=== PATIENT | male | born 1950 | race Hispanic/Latino ===

== ENCOUNTER 2016-12-04 15:28 | Observation (INO) | payer MEDICARE ==
[2016-12-04 16:39] LABS: BASO # 0.1 K/uL (0.0-0.2); BASO % 0.6 % (0.0-2.0); EOS # 0.7 K/uL (0.0-0.7); EOS % 5.8 % (0.0-4.0); LYMPH # 3.2 K/uL (1.0-4.3); LYMPH % 28.6 % (20.0-40.0); MEAN CELL VOLUME 91.5 fl (80.0-94.0); MEAN CORPUSCULAR HEMOGLOBIN 29.6 pg (27.0-31.0); MEAN CORPUSCULAR HGB CONC 32.4 g/dL (33.0-37.0); MEAN PLATELET VOLUME 8.3 fl (7.2-11.7); MONO # 0.7 K/uL (0.0-0.8); MONO % 6.6 % (0.0-10.0); NEUT # 6.6 K/uL (1.8-7.0); NEUT % 58.4 % (50.0-75.0); RED CELL DISTRIBUTION WIDTH 14.7 % (11.5-14.5); WHITE BLOOD COUNT 11.2 K/uL (4.8-10.8)
[2016-12-04 16:47] LABS: RBC URINE 3 /hpf (0-3); URINE BILIRUBIN NEGATIVE (NEGATIVE); URINE BLOOD NEGATIVE (NEGATIVE); URINE COLOR STRAW (YELLOW); URINE GLUCOSE (UA) NEG (Normal); URINE KETONE NEGATIVE (NEGATIVE); URINE LEUKOCYTE ESTERASE NEG Leu/uL (Negative); URINE PROTEIN NEGATIVE (NEGATIVE); URINE UROBILINOGEN 0.2-1.0 mg/dL (0.2-1.0); WBC URINE 1 /hpf (0-5)
[2016-12-04 16:50] LABS: PARTIAL THROMBOPLASTIN TIME 36.1 Seconds (25.6-37.1)
[2016-12-04 16:55] LABS: ALB/GLOB RATIO 1.5 (1.0-2.1); ALKALINE PHOSPHATASE 64 U/L (38-126); ALT/SGPT 25 U/L (21-72); AST/SGOT 27 U/L (17-59); BILIRUBIN,TOTAL 0.4 mg/dl (0.2-1.3); BLOOD UREA NITROGEN 30 mg/dl (9-20); CALCIUM 10.1 mg/dL (8.4-10.2); CARBON DIOXIDE 21 mmol/L (22-30); CHLORIDE 109 mmol/L (98-107); GFR AFRICAN-AMERICAN 34; GLUCOSE,RANDOM 95 mg/dL (75-110); SODIUM 139 mmol/l (132-148); TOTAL PROTEIN 7.7 G/DL (6.3-8.2)
[2016-12-04 17:09] LABS: POTASSIUM 5.6 MMOL/L (3.6-5.0)
--- NOTE | 2016-12-04 17:53 | ED PDOC ---
Lower Extremity Pain/Injury Time Seen by Provider: 12/04/16 15:57 Chief Complaint (Nursing): Lower Extremity Problem/Injury Chief Complaint (Provider): Lower Extremity Swelling History Per: Patient History/Exam Limitations: no limitations Onset/Duration Of Symptoms: Worse Since (recently) Current Symptoms Are (Timing): Still Present Additional History Per: Patient, Prior Records Additional Complaint(s): Niranjan is a 66 y/o male with a past medical history of COPD, CAD, and hypertension , who presents to the ED with ongoing and worsening lower extremity pain, left greater than right. Sent by PMD Dr. Hughes to the ED for further evaluation. He describes pain as sharp, and worsening with laying down. Denies recent trauma. Reports he recently stopped taking gabapentin per instruction of his neurologist Dr. Sung, due to concern for association with lower extremity swelling. PMD: Sharad Hughes MD Neurologist: Meri Sung MD Past Medical History Reviewed: Historical Data, Nursing Documentation, Vital Signs Vital Signs: Last Vital Signs Temp Pulse 50 L 12/04/16 15:49 Resp 16 12/04/16 15:49 BP 140/58 L 12/04/16 15:49 Pulse Ox 98 12/04/16 15:49 - Medical History PMH: CAD, COPD, HTN Denies: Chronic Kidney Disease Other PMH: Neuropathy - Surgical History Surgical History: Coronary Stent (x 2 in 1998) Other surgeries: Pyloric stenosis during infancy - Family History Family History: States: Unknown Family Hx - Social History Current smoker - smoking cessation education provided: Yes Alcohol: None Drugs: Denies - Home Medications Home Medications: Ambulatory Orders Medication Instructions Recorded Aspirin [Aspirin EC] 1 tab PO DAILY 02/13/16 Lisinopril [Zestril] 1 tab PO DAILY 02/13/16 Metoprolol Tartrate [Metoprolol 1 tab PO DAILY 02/13/16 Tartrate] Nitroglycerin [Nitrostat] 1 tab SL PRN PRN 12/04/16 - Allergies Allergies/Adverse Reactions: Allergies Allergy/AdvReac Type Severity Reaction Status Date / Time pregabalin [From Lyrica] Allergy RASH Verified 12/04/16 15:49 Review of Systems ROS Statement: Except As Marked, All Systems Reviewed And Found Negative Musculoskeletal: Positive for: Other (Lower extremity swelling, Left > right ) Physical Exam - Reviewed Nursing Documentation Reviewed: Yes Vital Signs Reviewed: Yes - Physical Exam Appears: Positive for: Non-toxic, No Acute Distress Head Exam: Positive for: ATRAUMATIC, NORMAL INSPECTION, NORMOCEPHALIC Skin: Positive for: Normal Color, Warm, Dry Eye Exam: Positive for: EOMI, Normal appearance, PERRL Neck: Positive for: Normal, Painless ROM, Supple Cardiovascular/Chest: Positive for: Regular Rate, Rhythm. Negative for: Murmur Respiratory: Positive for: Wheezing (Trace wheezing bilaterally). Negative for : Respiratory Distress Gastrointestinal/Abdominal: Positive for: Normal Exam, Soft. Negative for: Tenderness Extremity: Positive for: Normal ROM, Tenderness (Tenderness along the foot and calf), Swelling (Left > right, lower extremity) Neurologic/Psych: Positive for: Alert, Oriented - Laboratory Results Result Diagrams: 12/04/16 16:34 12/04/16 16:34 - ECG O2 Sat by Pulse Oximetry: 98 (RA) Pulse Ox Interpretation: Normal Medical Decision Making Medical Decision Making: Old charts were reviewed. Time: 16:03 Initial Impression: Work up for Peripheral Edema Initial Plan: --EKG --CBC --PTT --Prothrombin time --CMP --Troponin I --B-type natriuretic peptide --Urinalysis --CXR 2 views --Toradol 30 mg IV --Pending X-Ray Left Foot --Pending US Duplex Lower Ext, Bilateral --Pending reevaluation Time: 18:01 X-Ray Left Foot: FINDINGS: BONES: Normal. No fracture. JOINTS: Normal. SOFT TISSUES: Normal. OTHER FINDINGS: None. IMPRESSION: Normal left foot radiographs. Time: 18:01 X-Ray Chest: FINDINGS: LUNGS: No active pulmonary disease. PLEURA: No significant pleural effusion identified. No pneumothorax apparent. CARDIOVASCULAR: Normal. OSSEOUS STRUCTURES: No significant abnormalities. VISUALIZED UPPER ABDOMEN: Normal. OTHER FINDINGS: None. IMPRESSION: No active disease. Time: 18:33 US Lower Extrem: Findings: There is normal flow, compressibility, and augmentation of the left common femoral, femoral, and popliteal veins. The left posterior tibial veins appear patent. Impression: No evidence of deep venous thrombosis in the left lower extremity. Time: 19:16 US Duplex Bilateral Lower Extremity Arteries: FINDINGS: Right common femoral artery: Right common femoral artery peak systolic velocity 135 cm/s. Right superficial femoral artery: Distal right superficial femoral artery is patent with velocity 97 cm/s. Right popliteal artery: No acute findings. No occlusion or significant stenosis. Right calf/foot arteries: Diminished flow in the right posterior tibial and anterior tibial artery which are patent. Left common femoral artery: No acute findings. No occlusion or significant stenosis. Left superficial femoral artery: Peak systolic velocity in the left superficial femoral artery at the mid level is 90 cm/s with diffuse disease. Left popliteal artery: The velocity of the popliteal artery on the left is 11 cm /s which is decreased since prior. Atherosclerotic disease. Left calf/foot arteries: Posterior tibial artery anterior tibial artery on the left demonstrate patency with comparable velocities.. The dorsalis pedis is not seen on the left. Other arteries: Monophasic waveforms are noted in both lower extremity arterial systems. The velocities in the left lower extremity arterial system diminished compared to the prior. Soft tissues: Unremarkable. IMPRESSION: Monophasic waveforms bilaterally. Diminished velocity measurements in the left lower arterial system since the prior study. Correlate for more proximal stenosis, downstream dampening. The left dorsalis pedis is not visualized. Time: 20:08 --Discussed case with Dr. Hughes, who recommends starting Lovenox low dose and admitting for possible vascular intervention. --Patient also given Duoneb treatment for COPD exacerbation Scribe Attestation: Documented by Angela Castaneda, acting as a scribe for Harsha Mejia III, DO Provider Scribe Attestation: All medical record entries made by the Scribe were at my direction and personally dictated by me. I have reviewed the chart and agree that the record accurately reflects my personal performance of the history, physical exam, medical decision making, and the department course for this patient. I have also personally directed, reviewed, and agree with the discharge instructions and disposition. Disposition - Clinical Impression Clinical Impression: COPD exacerbation, Claudication - Patient ED Disposition Is Patient to be Admitted: Yes Counseled Patient/Family Regarding: Studies Performed, Diagnosis - Disposition Disposition Time: 20:08 Condition: GUARDED - Pt Status Changed To: Hospital Disposition Of: Inpatient - Admit Certification Admit to Inpatient:: After my assessment, the patient will require hospitalization for at least two midnights. This is because of the severity of symptoms shown, intensity of services needed, and/or the medical risk in this patient being treated as an outpatient. - POA Present On Arrival: None
--- NOTE | 2016-12-04 18:03 | RAD ---
HISTORY: chest pain/ r/o infiltrate COMPARISON: 02/13/2016 TECHNIQUE: Chest PA and lateral FINDINGS: LUNGS: No active pulmonary disease. PLEURA: No significant pleural effusion identified. No pneumothorax apparent. CARDIOVASCULAR: Normal. OSSEOUS STRUCTURES: No significant abnormalities. VISUALIZED UPPER ABDOMEN: Normal. OTHER FINDINGS: None. IMPRESSION: No active disease.
--- NOTE | 2016-12-04 18:03 | RAD ---
PROCEDURE: Left Foot Radiographs. HISTORY: L foot pain swelling COMPARISON: None. FINDINGS: BONES: Normal. No fracture. JOINTS: Normal. SOFT TISSUES: Normal. OTHER FINDINGS: None. IMPRESSION: Normal left foot radiographs.
--- NOTE | 2016-12-04 18:25 | CP.PCM.CON ---
History of Present Illness - History of Present Illness History of Present Illness: 66 year old male with PMH of HTN seen in the ED for painful feet and leg swelling. Patient states that the pain has been occurring for roughly a year and the swelling has been occurring for several months. Patient states that the pain and swelling is significantly worse in his left foot and leg. Patient denies any calf pain b/l. Patient denies history of DVT. Patient denies any recent trauma to either foot or leg. Patient states that he smokes cigarettes consistently throughout the day every day. Patient denies any further pedal complaints at this time. Patient denies N/V/F/C/CP/SOB Review of Systems - Review of Systems Review of Systems: ROS unremarkable outside of HPI Past Patient History - Infectious Disease Hx of Infectious Diseases: None - Past Medical History & Family History Past Medical History?: Yes - Past Social History Alcohol: None Drugs: Denies - CARDIAC Hx Hypertension: Yes - PULMONARY Hx Chronic Obstructive Pulmonary Disease (COPD): Yes - NEUROLOGICAL Hx Neurological Disorder: No - HEENT Hx HEENT Problems: Yes Other/Comment: glasses - RENAL Hx Chronic Kidney Disease: No - ENDOCRINE/METABOLIC Hx Endocrine Disorders: No - HEMATOLOGICAL/ONCOLOGICAL Hx Blood Disorders: No - INTEGUMENTARY Hx Dermatological Problems: No - MUSCULOSKELETAL/RHEUMATOLOGICAL Hx Musculoskeletal Disorders: No Hx Falls: No - GASTROINTESTINAL Hx Gastrointestinal Disorders: No - GENITOURINARY/GYNECOLOGICAL Hx Genitourinary Disorders: No - PSYCHIATRIC Hx Psychophysiologic Disorder: No Hx Substance Use: No - SURGICAL HISTORY Hx Coronary Stent: Yes (x 2 in 1998) - ANESTHESIA Hx Anesthesia: Yes Hx Anesthesia Reactions: No Meds Allergies/Adverse Reactions: Allergies Allergy/AdvReac Type Severity Reaction Status Date / Time pregabalin [From Lyrica] Allergy RASH Verified 12/04/16 15:49 Physical Exam - Constitutional Appears: Well, Non-toxic, No Acute Distress - Extremities Exam Additional comments: LE focused exam: Vasc: DP/PT pulses diminished 1/4 R and 0/4 L due to edema. CFT < 3 seconds to all digits b/l. Skin temperature warm to warm from proximal to distal. Diffuse pitting edema noted to left foot and leg. Neuro: Epicritic and protective sensation grossly intact b/l Derm: Deroofed bullae measuring roughly 0.3 cm x 0.2 cm x 0.1 cm noted to dorsal right hallux with serous drainage present. Otherwise no open lesions, wounds, maceration, xerosis, abnormal pigmentation or abnormal growths noted b/ l. MSK: POP to b/l feet L > R - Neurological Exam Neurological exam: Alert, Oriented x3 - Psychiatric Exam Psychiatric exam: Normal Affect, Normal Mood Results - Vital Signs Recent Vital Signs: Last Vital Signs Temp Pulse 50 L 12/04/16 15:49 Resp 16 12/04/16 15:49 BP 140/58 L 12/04/16 15:49 Pulse Ox 98 12/04/16 17:59 - Labs Result Diagrams: 12/04/16 16:34 12/04/16 16:34 Labs: Laboratory Results - last 24 hr 12/04/16 12/04/16 12/04/16 16:34 16:34 16:34 WBC 11.2 H RBC 3.50 L Hgb 10.4 L Hct 32.0 L MCV 91.5 D MCH 29.6 MCHC 32.4 L RDW 14.7 H Plt Count 242 D MPV 8.3 Neut % (Auto) 58.4 Lymph % (Auto) 28.6 [place] % (Auto) 6.6 Eos % (Auto) 5.8 H Baso % (Auto) 0.6 Neut # 6.6 Lymph # 3.2 [place] # 0.7 Eos # 0.7 Baso # 0.1 PT 11.3 INR 1.1 APTT 36.1 Sodium 139 Potassium 5.6 H Chloride 109 H Carbon Dioxide 21 L Anion Gap 15 BUN 30 H Creatinine 2.3 H Est GFR ( Amer) 34 Est GFR (Non-Af Amer) 29 Random Glucose 95 Calcium 10.1 Total Bilirubin 0.4 AST 27 ALT 25 Alkaline Phosphatase 64 Troponin I < 0.0120 NT-Pro-B Natriuret Pep 730 Total Protein 7.7 Albumin 4.6 Globulin 3.1 Albumin/Globulin Ratio 1.5 Urine Color Urine Clarity Urine pH Ur Specific [place] Urine Protein Urine Glucose (UA) Urine Ketones Urine Blood Urine Nitrate Urine Bilirubin Urine Urobilinogen Ur Leukocyte Esterase Urine RBC (Auto) Urine Microscopic WBC Ur Squamous Epith Cells 12/04/16 16:34 WBC RBC Hgb Hct MCV MCH MCHC RDW Plt Count MPV Neut % (Auto) Lymph % (Auto) [place] % (Auto) Eos % (Auto) Baso % (Auto) Neut # Lymph # [place] # Eos # Baso # PT INR APTT Sodium Potassium Chloride Carbon Dioxide Anion Gap BUN Creatinine Est GFR ( Amer) Est GFR (Non-Af Amer) Random Glucose Calcium Total Bilirubin AST ALT Alkaline Phosphatase Troponin I NT-Pro-B Natriuret Pep Total Protein Albumin Globulin Albumin/Globulin Ratio Urine Color Straw Urine Clarity Clear Urine pH 6.0 Ur Specific [place] 1.005 Urine Protein Negative Urine Glucose (UA) Neg Urine Ketones Negative Urine Blood Negative Urine Nitrate Negative Urine Bilirubin Negative Urine Urobilinogen 0.2-1.0 Ur Leukocyte Esterase Neg Urine RBC (Auto) 3 Urine Microscopic WBC 1 Ur Squamous Epith Cells < 1 Assessment & Plan - Assessment and Plan (Free Text) Assessment: 66 year old male with b/l leg and foot pain/swelling seen in ED Plan: Patient seen and evaluated in ED Left foot xray read as normal radiograph LE venous duplex negative for DVT Awaiting arterial duplex study Patient to be admitted to floors per request of his PCP Podiatry to sign off at this time Please reconsult as needed - Date & Time Date: 12/04/16 Time: 19:30
--- NOTE | 2016-12-04 18:35 | US ---
Left lower extremity ultrasound. Indication: LLE edema Technique: Duplex ultrasound evaluation of the left lower extremity Comparison: Bilateral lower extremity ultrasound performed 07/31/16 Findings: There is normal flow, compressibility, and augmentation of the left common femoral, femoral, and popliteal veins. The left posterior tibial veins appear patent. Impression: No evidence of deep venous thrombosis in the left lower extremity.
[2016-12-04] MEDS ORDERED: Enoxaparin 30 mg Syringe SC STA (20:10)
[2016-12-04] MEDS ORDERED: Albuterol-Ipratrop 3 mg / 0.5 (3 ml) UD INH STA (20:14)
[2016-12-04] MEDS ORDERED: Albuterol-Ipratrop 3 mg / 0.5 (3 ml) UD ONE (20:45)
--- NOTE | 2016-12-04 23:39 | CP.PCM.CON ---
History of Present Illness - History of Present Illness History of Present Illness: Consult requested for evaluation of claudication and rest pain HPI: 66-year-old male with past medical history significant for hypertension and diabetes mellitus and dyslipidemia of [id number] history of smoking admitted for complains of severe bilateral lower extremity pain. Patient in February 2016 had undergone a evaluation with cardiac cath showing mild coronary artery disease at that time he had undergone a left renal artery stenting. He has been followed for his cardiovascular care by Dr. blanton. I was consulted for evaluation of worsening symptoms of claudication and evaluation for peripheral angiogram. 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 He describes bilateral lower extremity pain both at rest and with activity burning in sensation in a company very mild aching sensation. Symptoms are progressively getting worse and he is unable to sleep secondary to severe pain and exertion. Review of Systems - Review of Systems All systems: reviewed and no additional remarkable complaints except - Constitutional Constitutional: As Per HPI, Lethargy, Weakness - EENT Eyes: As Per HPI Ears: As Per HPI Nose/Mouth/Throat: As Per HPI - Cardiovascular Cardiovascular: As Per HPI - Respiratory Respiratory: As Per HPI - Gastrointestinal Gastrointestinal: As Per HPI - Genitourinary Genitourinary: As Per HPI - Reproductive: Male Reproductive:Male: As Per HPI - Musculoskeletal Musculoskeletal: As Per HPI - Integumentary Integumentary: As Per HPI - Neurological Neurological: As Per HPI - Psychiatric Psychiatric: As Per HPI - Endocrine Endocrine: As Per HPI - Hematologic/Lymphatic Hematologic: As Per HPI Past Patient History - Infectious Disease Hx of Infectious Diseases: None - Past Medical History & Family History Past Medical History?: Yes Pertinent Family History: +ve for HTN and CAD - Past Social History Alcohol: None Drugs: Denies - CARDIAC Hx Hypertension: Yes - PULMONARY Hx Chronic Obstructive Pulmonary Disease (COPD): Yes - NEUROLOGICAL Hx Neurological Disorder: No - HEENT Hx HEENT Problems: Yes Other/Comment: glasses - RENAL Hx Chronic Kidney Disease: No - ENDOCRINE/METABOLIC Hx Endocrine Disorders: No - HEMATOLOGICAL/ONCOLOGICAL Hx Blood Disorders: No - INTEGUMENTARY Hx Dermatological Problems: No - MUSCULOSKELETAL/RHEUMATOLOGICAL Hx Musculoskeletal Disorders: No Hx Falls: No - GASTROINTESTINAL Hx Gastrointestinal Disorders: No - GENITOURINARY/GYNECOLOGICAL Hx Genitourinary Disorders: No - PSYCHIATRIC Hx Psychophysiologic Disorder: No Hx Substance Use: No - SURGICAL HISTORY Hx Coronary Stent: Yes (x 2 in 1998) - ANESTHESIA Hx Anesthesia: Yes Hx Anesthesia Reactions: No Meds Allergies/Adverse Reactions: Allergies Allergy/AdvReac Type Severity Reaction Status Date / Time pregabalin [From Lyrica] Allergy RASH Verified 12/04/16 15:49 - Medications Medications: Current Medications Albuterol/Ipratropium (Duoneb 3 Mg/0.5 Mg (3 Ml) Ud) 3 ml INH RQ6 DENISSE Aspirin (Ecotrin) 81 mg PO DAILY DENISSE Enoxaparin Sodium (Lovenox) 40 mg SC DAILY DENISSE PRN Reason: Protocol Hydromorphone HCl (Dilaudid) 2 mg PO Q4 PRN PRN Reason: Pain, moderate (4-7) Metoprolol Tartrate (Lopressor) 50 mg PO DAILY [facility] Nitroglycerin (Nitrostat Sl Tab) 0.4 mg SL Q5M PRN PRN Reason: Chest Pain Physical Exam - Constitutional Appears: Well - Head Exam Head Exam: ATRAUMATIC, NORMAL INSPECTION, NORMOCEPHALIC - Eye Exam Eye Exam: EOMI, Normal appearance, PERRL Pupil Exam: NORMAL ACCOMODATION, PERRL - ENT Exam ENT Exam: Mucous Membranes Moist, Normal Exam - Neck Exam Neck exam: Positive for: Normal Inspection - Respiratory Exam Respiratory Exam: Clear to Auscultation Bilateral, NORMAL BREATHING PATTERN - Cardiovascular Exam Cardiovascular Exam: REGULAR RHYTHM, +S1, +S2, Systolic Murmur - GI/Abdominal Exam GI & Abdominal Exam: Normal Bowel Sounds, Soft. absent: Tenderness - Extremities Exam Extremities exam: Positive for: normal inspection, pedal edema Additional comments: pedal pulses absent - Back Exam Back exam: NORMAL INSPECTION - Neurological Exam Neurological exam: Alert, CN II-XII Intact, Normal Gait, Oriented x3, Reflexes Normal - Psychiatric Exam Psychiatric exam: Normal Affect, Normal Mood - Skin Skin Exam: Dry, Intact, Normal Color, Warm Results - Vital Signs Recent Vital Signs: Last Vital Signs Temp 97.4 F L 12/04/16 22:57 Pulse 47 L 12/04/16 22:57 Resp 20 12/04/16 22:57 BP 145/52 L 12/04/16 22:57 Pulse Ox 97 12/04/16 22:57 - Labs Result Diagrams: 12/04/16 16:34 12/04/16 16:34 Assessment & Plan (1) Claudication, class IV Assessment and Plan: will f/u on arterial duplex sx most likely 2' to severe PVOD will need optimization of renal function prior to angiogram keep pt on asa, plavix, statins, acei Status: Acute (2) Dyslipidemia Assessment and Plan: statins Status: Acute (3) Hypertension Status: Acute (4) Peripheral neuropathy Status: Acute
[2016-12-05] MEDS: Albuterol-Ipratrop 3 mg / 0.5 (3 ml) UD INH SCH ×3 (01:08→14:32)
[2016-12-05 05:27] LABS: ABG ALLEN TEST YES; ARTERIAL BLOOD GAS HCO3 18.9 mmol/L (21-28); ARTERIAL BLOOD GAS O2 CAPACITY 15.4 mL/dL (16-24); ARTERIAL BLOOD GAS PH 7.33 (7.35-7.45); ARTERIAL BLOOD GAS PO2 79 mm/Hg (80-100); ARTERIAL BLOOD HGB O2 SAT 93.7 % (95.0-98.0); CARBOXYHEMOGLOBIN 1.8 % (0.5-1.5); HHB 2.8 % (0.0-5.0); METHEMOGLOBIN 1.8 % (0.0-3.0)
[2016-12-05 06:48] LABS: PARTIAL THROMBOPLASTIN TIME 35.5 Seconds (25.6-37.1)
[2016-12-05] MEDS ORDERED: Enoxaparin 30 mg Syringe SC SCH (09:00)
--- NOTE | 2016-12-05 10:05 | CP.PCM.CON ---
History of Present Illness - History of Present Illness History of Present Illness: 66 yo man w/ chronic pain involving the legs has been referred for pain management. He's a poor historian, history was pieced together from his chart and via Dr. Hughes. Apparently patient has an outside pain physician, who ordered a recent MRI. The lumbar MRI showed diffuse facet syndrome, with resultant foraminal stenoses. He has been on both Lyrica and Neurontin, but couldn't tolerate either. He's unsure which opioid he's been on however. He does state that he has bilateral feet and lower leg pain, burning in quality , constant, but not worse with ambulation or direct pressure. In fact walking makes the pain better. He does have some lower back pain, but not as severe as the pain in the feet. Currently the left leg is more symptomatic. Per Dr. Hughes, peripheral stenting may be necessary but that's on hold due to his renal insufficiency. Past Patient History - Infectious Disease Hx of Infectious Diseases: None - Past Medical History & Family History Past Medical History?: Yes - Past Social History Smoking Status: Heavy Smoker > 10 Cigarettes Daily - CARDIAC Hx Cardiac Disorders: Yes Hx Hypertension: Yes - PULMONARY Hx Respiratory Disorders: Yes Hx Chronic Obstructive Pulmonary Disease (COPD): Yes - NEUROLOGICAL Hx Neurological Disorder: Yes Other/Comment: Neuropathy - HEENT Hx HEENT Problems: No - RENAL Hx Chronic Kidney Disease: No - ENDOCRINE/METABOLIC Hx Endocrine Disorders: No - HEMATOLOGICAL/ONCOLOGICAL Hx Blood Disorders: No - INTEGUMENTARY Hx Dermatological Problems: No - MUSCULOSKELETAL/RHEUMATOLOGICAL Hx Musculoskeletal Disorders: No Hx Falls: No - GASTROINTESTINAL Hx Gastrointestinal Disorders: No - GENITOURINARY/GYNECOLOGICAL Hx Genitourinary Disorders: No - PSYCHIATRIC Hx Psychophysiologic Disorder: No Hx Substance Use: No - SURGICAL HISTORY Hx Surgeries: Yes Hx Coronary Stent: Yes (x 2 in 1998) Other/Comment: Sx for pyloric stenosis as an - ANESTHESIA Hx Anesthesia: Yes Hx Anesthesia Reactions: No Hx Malignant Hyperthermia: No Meds Allergies/Adverse Reactions: Allergies Allergy/AdvReac Type Severity Reaction Status Date / Time pregabalin [From Lyrica] Allergy RASH Verified 12/04/16 15:49 - Medications Medications: Current Medications Albuterol/Ipratropium (Duoneb 3 Mg/0.5 Mg (3 Ml) Ud) 3 ml INH RQ6 DENISSE Last Admin: 12/05/16 07:40 Dose: Not Given Aspirin (Ecotrin) 81 mg PO DAILY [facility] Last Admin: 12/05/16 08:30 Dose: 81 mg Enoxaparin Sodium (Lovenox) 30 mg SC DAILY [facility] PRN Reason: Protocol Last Admin: 12/05/16 08:31 Dose: 30 mg Hydromorphone HCl (Dilaudid) 2 mg PO Q4 PRN PRN Reason: Pain, moderate (4-7) Last Admin: 12/05/16 00:32 Dose: 2 mg Metoprolol Tartrate (Lopressor) 50 mg PO DAILY [facility] Last Admin: 12/05/16 08:30 Dose: 50 mg Nitroglycerin (Nitrostat Sl Tab) 0.4 mg SL Q5M PRN PRN Reason: Chest Pain Physical Exam - Respiratory Exam Respiratory Exam: Rales - Cardiovascular Exam Cardiovascular Exam: REGULAR RHYTHM - Extremities Exam Extremities exam: Positive for: pedal edema, tenderness - Back Exam Back exam: paraspinal tenderness, vertebral tenderness Results - Vital Signs Recent Vital Signs: Last Vital Signs Temp 98.6 F 12/05/16 08:07 Pulse 77 12/05/16 08:30 Resp 20 12/05/16 08:07 BP 154/69 H 12/05/16 08:30 Pulse Ox 99 12/05/16 08:07 - Labs Result Diagrams: 12/04/16 16:34 12/04/16 16:34 Labs: Laboratory Results - last 24 hr 12/05/16 12/05/16 04:00 05:55 PT 11.4 INR 1.1 APTT 35.5 pCO2 33 L pO2 79 L HCO3 18.9 L ABG pH 7.33 L ABG Total CO2 18.4 L ABG O2 Saturation 97.1 ABG O2 Content 15.0 ABG Base Excess -7.6 L ABG Hemoglobin 11.3 L ABG Carboxyhemoglobin 1.8 H POC ABG HHb (Measured) 2.8 ABG Methemoglobin 1.8 ABG O2 Capacity 15.4 L Desmond Test Yes A-a O2 Difference 29.0 Hgb O2 Saturation 93.7 L FiO2 21.0 Assessment & Plan - Assessment and Plan (Free Text) Assessment: 66 yo man w/ multiple co-morbidities is referred for pain management. Despite lumbar MRI findings, the current symptoms are likely secondary to PVD, peripheral neuropathy. He's tried Neurontin and Lyrica, two of the first line neuropathic medications, with adverse effects. He's on dependent on opioids apparently, and is currently on Dilaudid 2mg PO. - trial of Cymbalta 30mg qhs - continue Dilaudid 2mg PO PRN - defer to cardiology, f/u renal consult
[2016-12-05 12:36] VITALS: BP 113/66; PULSE 56; RESP 18; TEMP 98.1
--- NOTE | 2016-12-05 17:03 | US ---
PROCEDURE: Duplex ultrasound of the bilateral lower extremity arteries. HISTORY: LE pain COMPARISON: Comparison is made to the previous study dated 07/31/2016 TECHNIQUE: Grayscale and duplex Doppler evaluation of the bilateral common femoral, superficial femoral, popliteal, posterior tibial and dorsalis pedis arteries was performed.. FINDINGS: RIGHT LOWER EXTREMITY: RIGHT COMMON FEMORAL ARTERY: Patent demonstrate moderate atherosclerotic disease and intimal thickening. Monophasic waveform with spectral broadening is again noted. Maximal flow velocity of 135.8 cm/s. RIGHT SUPERFICIAL FEMORAL ARTERY: Patent demonstrate moderate atherosclerotic disease and monophasic waveform. Maximal flow velocity of 96.8 cm/s. RIGHT POPLITEAL ARTERY:Patent demonstrates monophasic waveform. Maximal flow velocity of 55.9 cm/s. RIGHT POSTERIOR TIBIAL ARTERY: Patent. Maximal flow velocity of 12.1 cm/s. RIGHT DORSALIS PEDIS ARTERY: Patent Maximal flow velocity of 16.7 cm/s. LEFT LOWER EXTREMITY: LEFT COMMON FEMORAL ARTERY: Patent demonstrate moderate atherosclerotic disease and monophasic waveform. Maximal flow velocity of 76.5 cm/s. LEFT SUPERFICIAL FEMORAL ARTERY: Patent demonstrates moderate atherosclerotic disease and intimal thickening with monophasic waveform. Maximal flow velocity of 90.4 cm/s. LEFT POPLITEAL ARTERY:Patent demonstrate atherosclerotic disease and diminished flow with monophasic waveform. Maximal flow velocity of 11.2 cm/s. LEFT POSTERIOR TIBIAL ARTERY: Patent Maximal flow velocity of 13.7 cm/s. LEFT DORSALIS PEDIS ARTERY: Was not visualized. . OTHER FINDINGS: None. IMPRESSION: Monophasic waveforms bilaterally. Interval further decreased peak systolic velocity in the left lower extremity since the previous exam. Correlate for possible proximal stenosis. The dorsalis pedis artery in the left is not visualized. Preliminary report was submitted by [facility].
--- NOTE | 2016-12-05 21:02 | HP ---
HISTORY OF PRESENT ILLNESS: The patient is a 66-year-old male with history of hypertension, who was admitted via the emergency room after he was seen in the office and referred for evaluation. He complained of pain in his feet and legs and swelling of both lower extremities with difficulty ambulating. He also has shortness of breath on and off for the past several weeks prior to presentation. He has a history of coronary artery disease, status post cardiac catheterization about a year ago. Continues to have lower extremity pains. He also has chronic obstructive pulmonary disease, hypertension, chronic renal failure and continues to smoke cigarettes. FAMILY HISTORY: Noncontributory. SOCIAL HISTORY: He smokes one or more pack of cigarettes daily and used to drink heavily until several months ago. He lives alone because his presently from alcohol-related problems. PHYSICAL EXAMINATION: GENERAL: This patient is alert and oriented. He is apprehensive. Does not want to be in the hospital. Continues to complaint of leg pains, but wants to sign himself out. VITAL SIGNS: Remarkable for blood pressure of 154/69 with a pulse of 77, respiratory rate 20. He is afebrile. O2 saturation is 99% on room air. SKIN: Shows fair turgor. HEENT: Pupils equal and reactive to light and accommodation. Mouth shows poor hygiene. NECK: JVP flat. LUNGS: Shows poor aeration throughout with dullness at the bases. HEART: S1, S2. BREASTS: Normal. ABDOMEN: Soft and nontender. No organomegaly. GENITALIA: Normal. RECTAL: Normal. EXTREMITIES: Has 2+ pitting, pedal edema with sever pain in both lower extremities, especially on laying down. CENTRAL NERVOUS SYSTEM: Grossly intact with steady gait. LABORATORY DATA: WBC 11.2, hemoglobin 10.4, platelet count pf 242,000. Sodium 139, potassium 5.6, BUN of 30, creatinine 2.3. Troponin less than 0.012. ABGs on room air shows pH of 7.33, pCO2 of 33, pO2 of 79. Duplex scan of lower extremities done, results pending. Ultrasound of lower extremities, no evidence of DVT. Chest x-ray, no active disease. EKG done on admission is remarkable for sinus bradycardia with marked sinus arrhythmia. IMPRESSION: Acute exacerbation of chronic obstructive pulmonary disease, claudication of lower extremities with severe pain, history of chronic alcoholism in the past with some peripheral neuropathy, cardiac arrhythmias, chronic renal failure, chronic anemia due to renal disease. PLAN: Nephrology evaluation, pain management, cardiology evaluation for possible revascularization and relief of claudication, analgesics for pain. The patient is advised to stay in the hospital for medical therapy. We will continue therapy as ordered. Sharad Hughes MD
--- NOTE | 2016-12-05 23:05 | CARD ---
APPROVED REPORT EKG Measurement Heart [id number] <Conclusion> Sinus bradycardia with marked sinus arrhythmia Otherwise normal ECG
--- NOTE | 2016-12-06 00:24 | CP.PCM.PN ---
Subjective - Date & Time of Evaluation Date of Evaluation: 12/05/16 Time of Evaluation: 14:30 - Subjective Subjective: I don't want to stay for the procedure as I don't like the food here Objective - Vital Signs/Intake and Output Vital Signs (last 24 hours): Temp Pulse Resp BP Pulse Ox 98.1 F 56 L 18 113/66 99 12/05/16 12:00 12/05/16 12:00 12/05/16 12:00 12/05/16 12:00 12/05/16 12:00 Intake and Output: 12/05/16 12/06/16 18:59 06:59 Intake Total 650 Balance 650 - Labs Labs: PT 11.4 Seconds (9.8-13.1) 12/05/16 05:55 INR 1.1 (0.9-1.2) 12/05/16 05:55 APTT 35.5 Seconds (25.6-37.1) 12/05/16 05:55 - Constitutional Appears: Well - Head Exam Head Exam: ATRAUMATIC, NORMAL INSPECTION, NORMOCEPHALIC - Eye Exam Eye Exam: EOMI, Normal appearance, PERRL Pupil Exam: NORMAL ACCOMODATION, PERRL - ENT Exam ENT Exam: Mucous Membranes Moist, Normal Exam - Neck Exam Neck Exam: Full ROM, Normal Inspection. absent: Lymphadenopathy - Respiratory Exam Respiratory Exam: Clear to Ausculation Bilateral, NORMAL BREATHING PATTERN - Cardiovascular Exam Cardiovascular Exam: REGULAR RHYTHM, +S1, +S2, Murmur - GI/Abdominal Exam GI & Abdominal Exam: Soft, Normal Bowel Sounds. absent: Tenderness - Exam Exam: Circumcision - Extremities Exam Extremities Exam: Full ROM, Normal Capillary Refill, Normal Inspection. absent : Joint Swelling, Pedal Edema Additional comments: pedal pulses absent - Back Exam Back Exam: NORMAL INSPECTION - Neurological Exam Neurological Exam: Alert, Awake, CN II-XII Intact, Normal Gait, Oriented x3 - Psychiatric Exam Psychiatric exam: Agitated, Normal Affect, Normal Mood - Skin Skin Exam: Dry, Intact, Normal Color, Warm Assessment and Plan (1) Claudication, class IV Assessment & Plan: severe bilateral PVOD based on arterial duplex keep pt on asa, plavix, statins, acei patient wants to go home and get outpt angiogram scheduled to undergo angiogram at [facility] [place] next wednesday Status: Acute (2) Dyslipidemia Status: Acute (3) Hypertension Status: Acute (4) Peripheral neuropathy Status: Acute
[2016-12-06 11:54] VITALS: O2SAT 98
== END 2016-12-05 15:03 | disposition left against medical advice (07) ==
LOC: H.ER 15:28 → H.ERHOLD 20:08 → INTOOBSV 20:08 → H.TEL 21:43
PROVIDERS: ADMIT Internal Medicine Pulmonary Disease; ATTEND Internal Medicine Pulmonary Disease
DX: E11.42 Type 2 diabetes mellitus with diabetic polyneuropathy (principal); I73.9 Peripheral vascular disease, unspecified; D63.1 Anemia in chronic kidney disease; F10.20 Alcohol dependence, uncomplicated; E11.22 Type 2 diabetes mellitus with diabetic chronic kidney disease; E78.5 Hyperlipidemia, unspecified; F17.210 Nicotine dependence, cigarettes, uncomplicated; G89.29 Other chronic pain; I12.9 Hypertensive chronic kidney disease with stage 1 through stage 4 chronic kidney disease, or unspecified chronic kidney disease; I25.10 Atherosclerotic heart disease of native coronary artery without angina pectoris; J44.1 Chronic obstructive pulmonary disease with (acute) exacerbation; N18.4 Chronic kidney disease, stage 4 (severe); Z79.82 Long term (current) use of aspirin; Z87.738 Personal history of other specified (corrected) congenital malformations of digestive system; Z95.5 Presence of coronary angioplasty implant and graft; M54.5 Low back pain; M79.669 Pain in unspecified lower leg; M79.673 Pain in unspecified foot; R26.2 Difficulty in walking, not elsewhere classified
CPT/HCPCS: 36415; 71020; 73630; 80053; 81003; 82803; 83880; 84484; 85025; 85610; 85730; 93005; 93922; 93971; 96372; 96374; 99285; G0378; J1650; J1885; J2930